=== PATIENT | female | born 1990 | race Caucasian/White ===

== ENCOUNTER 2017-06-17 22:49 | Emergency (ER) | payer SELFPAY ==
[~2017-06-17] VITALS: Ht 160 cm; Wt 73.0 kg
[~2017-06-17 22:49] MED LIST: CALNA PO; CIPRO500 MG OR; FERR SULFATE325 MG PO; NO HOME MEDS; PERCOCET 5/325M1 TAB PO
[2017-06-17] MEDS ORDERED: AMOXICILLIN500 MG PO (23:18)
[2017-06-17] MEDS ORDERED: PERCOCET 5/325M1 TAB PO (23:18)
[2017-06-17 23:32] VITALS: BP 107/63
== END 2017-06-17 23:34 | disposition home or self-care (01) | DRG 159 ==
LOC: ED 22:49
DX: K02.9 Dental caries, unspecified (principal)

== ENCOUNTER 2017-10-30 15:13 | Emergency (ER) | payer SELFPAY ==
[~2017-10-30] VITALS: Ht 160 cm; Wt 70.0 kg
[~2017-10-30 15:13] MED LIST changes: +AMOXICILLIN500 MG PO
[2017-10-30 17:22] LABS: INFLUENZA A NONE DETECTED (NONE DETECT); INFLUENZA B NONE DETECTED (NONE DETECT)
[2017-10-30] MEDS ORDERED: AMOXICILLIN500 MG PO (17:27)
[2017-10-30 17:32] VITALS: BP 100/45
== END 2017-10-30 17:32 | disposition home or self-care (01) | DRG 153 ==
LOC: ED 15:13
PROVIDERS: Emergency Medicine
DX: J02.0 Streptococcal pharyngitis (principal); F17.210 Nicotine dependence, cigarettes, uncomplicated; R05 Cough; R50.9 Fever, unspecified

== ENCOUNTER 2020-07-06 20:29 | Emergency (ER) | payer BC ==
[~2020-07-06] VITALS: Ht 160 cm; Wt 63.0 kg
[2020-07-06 21:21] LABS: HEMATOCRIT 36.1 % (37.0-47.0); HEMOGLOBIN 11.6 g/dl (12.0-16.0); IMMATURE GRANULOCYTES 0.3 % (0.0-5.0); MEAN CELL VOLUME 92.8 fL CALC (80.0-100.0); MEAN CORPUSCULAR HGB 29.8 pG CALC (26.0-32.0); MEAN CORPUSCULAR HGB CONC 32.1 g/dL CAL (32.0-36.0); NEUT# 5.9 thou/uL (2.00-7.15); RED BLOOD COUNT 3.89 mill/uL (4.20-5.60); RED CELL DISTRI WIDTH 13.5 % (11.5-15.5)
[2020-07-06 21:26] LABS: URINE BILIRUBIN - DIPSTICK NEGATIVE (NEGATIVE); URINE BLOOD DIPSTICK NEGATIVE (NEGATIVE); URINE COLOR YELLOW; URINE GLUCOSE - DIPSTICK NEGATIVE (NEGATIVE); URINE KETONE NEGATIVE (NEGATIVE); URINE LEUK ESTERASE NEGATIVE (NEGATIVE); URINE NITRITE - DIPSTICK NEGATIVE (Negative); URINE PROTEIN - DIPSTICK NEGATIVE (NEG-TRACE); URINE SPECIFIC GRAVITY >=1.030
[2020-07-06 21:41] LABS: ALBUMIN 3.8 g/dL (3.2-5.0); ALKALINE PHOSPHATASE 70 u/l (38-126); AMYLASE 35 u/l (30-110); ANION GAP 8 (6-22 (CALC)); BILIRUBIN, TOTAL 0.3 mg/dL (0.0-1.4); BUN 14 mg/dL (7-17); BUN/CREATININE RATIO 19 (12-20 (CALC)); CARBON DIOXIDE 27 mmol/l (22-30); CHLORIDE 105 mmol/l (95-108); CREATININE 0.7 mg/dL (0.5-1.0); GFR > 60 ML/MIN (>=60 (CALC)); GFR FOR AFR.AMER. > 60 ML/MIN (>=60 (CALC)); LIPASE 41 u/l (23-300); POTASSIUM 3.5 mmol/l (3.5-5.1); SGOT/AST 24 u/l (14-36); SODIUM 136 mmol/l (137-146); TOTAL PROTEIN 6.4 g/dL (6.3-8.2)
[2020-07-06 22:55] VITALS: BP 88/58
[2020-07-06] MEDS ORDERED: HYDROCO/APAP1 TA9 PO (23:13)
[2020-07-06] MEDS ORDERED: ZOFRAN4 MG/TAB PO (23:13)
== END 2020-07-06 23:23 | disposition home or self-care (01) | DRG 392 ==
LOC: ED 20:29
DX: R10.31 Right lower quadrant pain (principal); R10.32 Left lower quadrant pain; R19.7 Diarrhea, unspecified; F17.210 Nicotine dependence, cigarettes, uncomplicated
CPT/HCPCS: Q9967

== ENCOUNTER 2023-01-13 11:38 | Emergency (ER) | payer OTHER ==
[~2023-01-13] VITALS: Ht 160 cm; Wt 78.4 kg
[~2023-01-13 11:38] MED LIST changes: +HYDROCO/APAP1 TA9 PO; +ZOFRAN4 MG/TAB PO
[2023-01-13 14:15] VITALS: BP 98/60
== END 2023-01-13 15:30 | disposition left against medical advice (07) | DRG 951 ==
LOC: ED 11:38 → LWOBS 15:30
DX: Z53.21 Procedure and treatment not carried out due to patient leaving prior to being seen by health care provider (principal); J10.1 Influenza due to other identified influenza virus with other respiratory manifestations

== ENCOUNTER 2024-07-22 18:04 | Emergency (ER) | payer OTHER ==
[~2024-07-22] VITALS: Ht 160 cm; Wt 92.9 kg
== END 2024-07-22 19:23 | disposition left against medical advice (07) | DRG 951 ==
LOC: ED 18:04
DX: Z53.21 Procedure and treatment not carried out due to patient leaving prior to being seen by health care provider (principal)